=== PATIENT | female | born 1995 | race Caucasian/White ===

== ENCOUNTER 2021-04-16 17:03 | Emergency (ER) | payer SELFPAY ==
[~2021-04-16] VITALS: Ht 157.5 cm; Wt 93.4 kg
[2021-04-16 17:33] VITALS: BP_SYST 130
[2021-04-16] MEDS ORDERED: LEVO75TA7 PO (18:25)
[2021-04-16 18:33] VITALS: BP_SYST 130
== END 2021-04-16 18:33 ==
LOC: SED 17:03
DX: M79.661 Pain in right lower leg (principal); E03.9 Hypothyroidism, unspecified; Z79.899 Other long term (current) drug therapy
CPT/HCPCS: 99283

== ENCOUNTER 2024-05-12 19:56 | Emergency (ER) | payer OTHER ==
[~2024-05-12] VITALS: Ht 157.5 cm; Wt 107.0 kg
[~2024-05-12 19:56] MED LIST: LEVO75TA7 PO
[2024-05-12 20:14] VITALS: BP_SYST 123; PULSE 84; RESP 18; TEMP 96.5; O2SAT 96
[2024-05-12 22:17] LABS: COVID19 ANTIGEN SOFIA FIA NEGATIVE (NEGATIVE)
[2024-05-12 22:23] LABS: INFLUENZA TYPE A Negative (NEGATIVE); INFLUENZA TYPE B NEGATIVE (NEGATIVE)
[2024-05-12] MEDS: ACETAMINOPHEN 500 MG TABLET PO ONE (23:02)
[2024-05-12] MEDS: ONDANSETRON 4 MG ODT TAB PO ONE (23:02)
[2024-05-12] MEDS: KETOROLAC TROMETHAMINE 30 MG VIAL IM ONE (23:04)
[2024-05-12] MEDS ORDERED: ALBMDI INH (23:23)
[2024-05-12] MEDS ORDERED: ONDA-8 TL (23:23)
[2024-05-12 23:39] VITALS: BP_SYST 131; PULSE 63; RESP 14; TEMP 98
[2024-05-12] MEDS: ALBUTEROL SULFATE 0.083% 2.5 MG/3 ML VIAL.NEB INH ONE (23:54)
[2024-05-12 23:55] VITALS: O2SAT 98
[2024-05-12] MEDS: IPRATROPIUM BROM 0.5 MG/2.5 ML VIAL.NEB (ATROVENT) INH ONE (23:55)
== END 2024-05-12 23:35 | disposition home or self-care (01) ==
LOC: SED 19:56
DX: J45.909 Unspecified asthma, uncomplicated (principal); J06.9 Acute upper respiratory infection, unspecified; R11.2 Nausea with vomiting, unspecified; E07.9 Disorder of thyroid, unspecified; Z20.822 Contact with and (suspected) exposure to COVID-19
CPT/HCPCS: 99284; 71045; 87426; 36415; 94640; 87804 ×2; 94664; Q0162; J1885